=== PATIENT | male | born 1985 | race Caucasian/White ===

== ENCOUNTER 2020-09-03 15:01 | Outpatient (REF) | payer MEDICAID, SELFPAY | END 2020-09-03 15:02 | disposition home or self-care (01) | LOC: HO.LAB 15:01 | PROVIDERS: Visit Provider Internal Medicine | DX: Z20.822 Contact with and (suspected) exposure to COVID-19 (principal) | CPT/HCPCS: 36415; C9803; U0003; U0005 ==

== ENCOUNTER 2022-02-16 08:15 | Outpatient (REF) | payer MEDICAID, SELFPAY ==
--- NOTE | ~2022-02-16 | XR_ITS ---
EXAMINATION: XR HAND, RIGHT CLINICAL INFORMATION: Pain right fingers. COMPARISON: Radiographs right hand and index finger 01/30/2015. TECHNIQUE: PA, lateral, and oblique views of the right hand. FINDINGS: Bony mineralization normal. There is no acute or healing fracture, dislocation, or destructive process. There is borderline negative ulnar variance similar to prior radiographs 2014. The carpus and MCP joints show no narrowing or erosive change or chondrocalcinosis. The interphalangeal joints are unremarkable. No narrowing or erosive change. XR/XR hand RT min 3V IMPRESSION: No arthropathy.
== END 2022-02-16 08:16 | disposition home or self-care (01) ==
LOC: HO.XRAY 08:15
PROVIDERS: PCP Internal Medicine; Visit Provider Emergency Medicine
DX: M79.644 Pain in right finger(s) (principal)
CPT/HCPCS: 73130

== ENCOUNTER → 2023-01-22 12:08 | Outpatient (BNVA) | payer MEDICAID, SELFPAY | PROVIDERS: PCP Internal Medicine; Visit Provider Nurse Practitioner Family | DX: N20.0 Calculus of kidney (principal); R10.9 Unspecified abdominal pain; R31.29 Other microscopic hematuria | CPT/HCPCS: 99202 ==

== ENCOUNTER 2023-02-04 13:13 | Outpatient (AMB) | payer MEDICAID, SELFPAY ==
--- NOTE | 2023-02-04 13:14 | A.OFFVIS_ITS ---
Intake Vital Signs 02/04/23 13:22 Weight 233 lb BP 120/84 Blood Pressure Location Rt brachial Position Sitting Pulse 85 Intake Visit Reasons: hemorrhoids Intake Note: This patient presents for an assessment for hemorrhoids. Patient c/o; occasional pain, describes rectal bleeding every morning. 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 He describes this with bleeding from his hemorrhoids. He said he has had this for many years. However, for the past 1 year, he has noticed this bleeding to be worse. He says that he practically bleeds every day with bowel movements. He also often feels discomfort pain with this hemorrhoids. He he denies problems with constipation. [facility] Medical History (Updated 02/04/23 @ 13:29 by Prateek Blue MD) Bleeding hemorrhoids Calculus of kidney Review of Systems Const Denies chills and Denies fever(s) Card Denies chest pain, Denies dyspnea and Denies dyspnea on exertion Resp Denies cough, Denies dyspnea and Denies dyspnea on exertion GI Reports hematochezia and Denies change in bowel habits Denies hematuria and Denies difficulty urinating Musc Denies back pain and Denies limited range of motion Neuro Denies focal weakness and Denies convulsions Psych Denies depression and Denies mood swings Physical Exam Const General: comfortable and no acute distress Orientation/consciousness: patient oriented x3 Neck Neck: Yes no lymphadenopathy Resp Auscultation: clear to auscultation bilaterally Cardio Rhythm: regular rhythm GI Other: Rectal exam prominent external hemorrhoids, left and right side, multiple, no perianal lesions, no bleeding, no fissure Palpation (GI): Soft to palpation, nontender and no guarding Neuro General: patient oriented x3 Office Procedures Anoscopy He was in anatoliy-knife position. The anoscope was gently inserted. A full examination of the anal canal was done. He had large internal external hemorrhoidal columns, 1 on the left and 2 prominent columns on the right side. There were no other lesions. There was no fissure. There was no bleeding. T here was no induration or tenderness on digital exam [id number] Assessment & Plan Assessment & Plan (1) Bleeding hemorrhoids: Code(s): K64.9 - Unspecified hemorrhoids Plan: He has large hemorrhoidal columns, mix of internal and external as described above. He describes bleeding practically every day now and this has worsened the past year. I did explain to him the option of proceeding with hemorrhoidectomy. I discussed with the technique of this procedure. I reviewed the risks including but not limited to bleeding, infections, postop pain, as well as the benefits and alternatives. I explained to him what to expect postoperatively He says he will discuss this with his boss at work so I can take time off for the surgery. He will call the office once he is ready to schedule. Coding Level of Care Code New Pt Level 3 (88285) Diagnoses Bleeding hemorrhoids K64.9 CPT Codes Details - CPT: 14147-[id number] ([id number])
[2023-02-04 13:22] VITALS: BP 120/84; PULSE 85
== END 2023-02-04 13:35 | disposition home or self-care (01) ==
PROVIDERS: PCP Internal Medicine; Visit Provider Surgery
DX: K64.9 Unspecified hemorrhoids (principal)
CPT/HCPCS: 46600; 99203

== ENCOUNTER → 2023-02-04 13:13 | Outpatient (BNVA) | payer MEDICAID, SELFPAY | PROVIDERS: PCP Internal Medicine; Visit Provider Surgery | DX: K64.9 Unspecified hemorrhoids (principal) | CPT/HCPCS: 46600; 99202 ==

== ENCOUNTER 2023-02-26 06:46 | Day surgery (SDC) | payer MEDICAID, SELFPAY ==
[2023-02-26] VITALS (14 sets, daily range): BP systolic 107–134; BP diastolic 67–77; PULSE 59–73; RESP 16–18; TEMP 36.4–37.1; O2SAT 94–100; BMI 32.1
[2023-02-26] MEDS: Lactated Ringers 1,000 ML 100 ML IVCONT (07:20)
--- NOTE | 2023-02-26 07:51 | HO.ANESPROP2 ---
HPI - Anesthesia Eval Consult details Narrative: for hemorroidectomy PMFSH Active Problems Active Problems: All Active Problems (Updated 02/04/23 @ 13:29 by Prateek Blue MD) Bleeding hemorrhoids (Acute) Microscopic hematuria (Acute) Flank pain (Acute) Calculus of kidney (Acute) Past Medical History Medical History Bleeding hemorrhoids Calculus of kidney Family History Family history of problems with anesthesia: No Surgical History History of Problems with Anesthesia: No Social History Social History Patient Tobacco Use Status: Never used Tobacco Substance Use Frequency: Daily Are you DNR?: No Advance Directives: No Advance Directives Information Provided: Yes Nutrition Risks: No Nutritional Risk Meds Allergies Allergy/AdvReac Type Severity Reaction Status Date / Time SEAFOOD Allergy Severe ANAPHYLAXIS Uncoded 02/26/23 06:57 crustaceans Allergy Unknown swelling Uncoded 02/26/23 06:57 Active Medications: Current Medications Lactated Ringer's (Lr) 1,000 mls @ 100 mls/hr IVCONT .Q10H FLAQUITO Last Admin: 02/26/23 07:20 Dose: 100 mls/hr Home Medications Medication Instructions Recorded Confirmed Last Taken Type ergocalciferol (vitamin D2) 1,250 1,250 mcg PO QWEEK 01/21/23 02/26/23 02/25/23 History mcg (50,000 unit) capsule Exam Exam Date and Time: February 26, 2023 0751 Height,Weight and Vital Signs: Height 5 ft 11 in Weight 104.326 kg Last Vital Signs Temp 97.6 F 02/26/23 07:07 Pulse 73 02/26/23 07:07 Resp 18 02/26/23 07:07 BP 115/77 02/26/23 07:07 Pulse Ox 96 02/26/23 07:07 O2 Del Method Room Air 02/26/23 07:07 Airway Mallampati Class: II TM Dist: >3cm Neck ROM: Full Heart: rrr Lungs: cta Assessment and Plan Assessment Anesthesia Assessment: Anesthesia Plan Discussed and Chart Reviewed Final Anesthetic Review Family History of Problems with Anesthesia: No History of Problems with Anesthesia: No NPO: Yes ASA Class: II Final Preanesthetic Review: No Changes in Pt Med Stat, Meds/Allgs Chart Reviewed, Consent Obtained/Reviewed and Anes Risks/Benef Reviewed Patient Risk: Low Procedure Risk: Low Anesthetic Plan Anesthetic Plan: GA Disposition: Standard PACU
--- NOTE | 2023-02-26 08:19 | MHC.SHP ---
Pre-Procedural Eval Section A Date of Service: 02/26/23 The patient is an INPATIENT: No Changes since office visit: Yes Cold of Flu in the past 2 weeks, Yes New Medical Problems, Yes Changes in Medication and Yes Patient answered all questions The History & Physical has been completed within 30 days and I have reviewed it.: Yes Section B Chief Complaint: Unspecified hemorrhoids Allergies: Allergies Allergy/AdvReac Type Severity Reaction Status Date / Time SEAFOOD Allergy Severe ANAPHYLAXIS Uncoded 02/26/23 06:57 crustaceans Allergy Unknown swelling Uncoded 02/26/23 06:57 Plan I have reviewed the history and physical and performed a pertinent physical examination on my patient. No changes have occurred unless specified. Time Spent With Patient Time: Total time managing care of this patient today ____ minutes.
--- NOTE | 2023-02-26 09:36 | W.PM.OPN ---
Operative Note Operative Note Narrative: Preop diagnosis: Ble eding hemorrhoi d s , i n t e r n a l e x t e r n a l Po s t o p d i a g n o s i s : The same Augie frank ure:
--- NOTE | 2023-02-26 09:40 | P.OP_ITS ---
Operative Note Operative Note Date of Service: 02/26/23 Narrative: Preop diagnosis: Bleeding internal external hemorrhoids Postop diagnosis: The same Procedure: Exam under anesthesia hemorrhoidectomy x3 columns Surgeon: Prateek Blue MD The patient is a 37-year-old male with a long history of passage of blood per rectum with note of bulky hemorrhoids on examination. He wanted to proceed with hemorrhoidectomy. He understood the technique of the planned procedure as well as the risks, benefits, and alternatives Was brought to the operating room. He was placed in prone anatoliy-knife position under general anesthesia via endotracheal tube. The buttocks were retracted wi th wide tape laterally. The perianal area was prepped and draped in the usual sterile fashion. A surgical time-out was done. The patient received a 10 2 g IV preoperatively Examination of the anal orifice revealed bulky hemorrhoidal columns, 1 on the left lateral, 1 on the right lateral and a small external hemorrhoid on the anterior lateral. I inserted the Daylin Davis retractor. I examined the anal canal circumferentially. There were no other lesions seen. Again, the hemorrhoidal columns described above were noted and the lateral columns on both sides were seen to be a mix of internal external and were bulky I applied a Canales grasper on the hemorrhoidal column on the left to retract this out in the field. I made a figure of 8 stitch at the pedicle past the dentate line using a chromic 3-0. I made an incision around this hemorrhoidal column to the perianal skin using blade 15. I excised this hemorrhoidal column above the plane of sphincters along this incision using scissors. I then closed this incision with a running chromic 3-0 stitch. Multiple additional chromic 3-0 sutures were placed for hemostasis as the incision was very will see due to the large size. I also then applied a Canales grasper at the hemorrhoidal column on the right side. I made a giwhyb-or-kzupo stitch at the pedicle using chromic 3-0 and made an incision around this all the way to the perianal skin with a blade 15. I excised this hemorrhoidal column above the plane of the sphincters along this incision with scissors. I closed the incision with a running chromic 3-0 stitch with additional hemostatic sutures placed as well. This area was oozy as well in view of the large size. There was as smaller external hemorrhoid column on the right anterior which was excised as well and closed with a running chromic 3-0 stitch. I observed for hemostasis. I had to apply for additional hemostatic sutures for oozing areas. Once hemostasis appeared to be achieved, I proceeded to then position a rolled Gelfoam into the anal canal for additional hemostasis. The anal canal was patent I infiltrated the perianal area with Marcaine 0.5% for postop analgesia. The procedure was then completed The patient tolerated procedure well. There were no immediate complications. Initial and final counts of sponges and instruments were correct. Estimated blood loss about 150 cc. The patient was extubated without difficulty and transferred to the recovery room with stable vital signs.
[2023-02-26] MEDS: oxyCODONE HCl Immed Release 5 MG TABLET PO (10:20)
[2023-02-26] MEDS: fentaNYL citrate/PF 100 MCG/2 ML VIAL 25 MCG IVPUSH ×3 (10:21→11:06)
[2023-02-26] MEDS: Acetaminophen 1,000 MG/100 ML PIGGYBACK 400 MG IV (10:26)
== END 2023-02-26 12:00 | disposition home or self-care (01) ==
PROVIDERS: PCP Internal Medicine; Visit Provider Surgery
PROC: (CPT 46260; principal; 2023-02-26 08:40)
PROC: (CPT 46260; 2023-02-26 08:40)
DX: K64.8 Other hemorrhoids (principal); K64.4 Residual hemorrhoidal skin tags; K62.5 Hemorrhage of anus and rectum; Z79.899 Other long term (current) drug therapy; Z87.442 Personal history of urinary calculi
CPT/HCPCS: 46260; 88304; J0131; J1885; J2405; J3010

== ENCOUNTER → 2023-02-26 06:46 | Outpatient (BNV) | payer MEDICAID, SELFPAY | PROVIDERS: PCP Internal Medicine; Visit Provider Surgery | DX: K64.8 Other hemorrhoids (principal) | CPT/HCPCS: 46260 ==

== ENCOUNTER 2023-03-08 13:54 | Outpatient (REF) | payer MEDICAID, SELFPAY ==
--- NOTE | ~2023-03-08 | US_ITS ---
EXAMINATION: US RETROPERITONEAL LIMITED (RENAL ONLY) CLINICAL INFORMATION: Calculus of kidney. COMPARISON: CT abdomen and pelvis 03/07/2020. X-ray KUB 07/01/2016. Renal ultrasound 06/16/2016. TECHNIQUE: Real-time imaging of the kidneys. FINDINGS: RIGHT KIDNEY: 11.4 x 5.7 x 5.5 cm (SAG x AP x TRV). The kidney is normal in size, contour, and echogenicity. Renal cortical thickness is normal. No calculi or focal parenchymal lesions. No hydronephrosis. LEFT KIDNEY: 12.4 x 5.4 x 6.6 cm (SAG x AP x TRV). The kidney is normal in size, contour, and echogenicity. There is a hypertrophic column of Keshav. Renal cortical thickness is normal. No calculi or focal parenchymal lesions. No hydronephrosis. US/US renal BI IMPRESSION: Unremarkable examination.
== END 2023-03-08 13:55 | disposition home or self-care (01) ==
LOC: HO.US 13:54
PROVIDERS: PCP Internal Medicine; Visit Provider Nurse Practitioner Family
DX: N20.0 Calculus of kidney (principal)
CPT/HCPCS: 76775

== ENCOUNTER 2023-03-08 14:35 | Outpatient (AMB) | payer MEDICAID, SELFPAY ==
--- NOTE | 2023-03-08 15:02 | MHC.OFFVIS ---
Intake Vital Signs 03/08/23 15:11 Weight 223 lb BP 114/74 Blood Pressure Location Rt brachial Position Sitting Pulse 74 Intake Visit Reasons: s/p hemorrhoidectomy, pain and bleeding Intake Note: This patient presents for a post-op follow-up assessment for rectal pain and bleeding, Hx hemorrhoidectomy. Patient c/o; reports rectal pain and bleeding. 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 He says that he had noticed some periodic bleeding with bowel movements the past 3 days as well as some pains. He was having an ultrasound today in the hospital so she called to see if he can come by to have the area checked. He denies any fever or chills. He has good bowel movements. [facility] Medical History Bleeding hemorrhoids Calculus of kidney Surgical History History of hemorrhoidectomy Social History Patient Tobacco Use Status: Never used Tobacco Review of Systems Const Denies chills and Denies fever(s) Card Reports dyspnea on exertion Resp Reports dyspnea on exertion GI Reports hematochezia Physical Exam Vital Signs: Last Vital Signs Pulse 74 03/08/23 15:11 BP 114/74 03/08/23 15:11 Const General: comfortable and no acute distress Resp Effort & Inspection: normal respiratory effort GI Other: Hemorrhoidectomy sites healing well, no pus, no induration, no significant discharge, no redness Assessment & Plan Assessment & Plan (1) Bleeding hemorrhoids: Code(s): K64.9 - Unspecified hemorrhoids Plan: Status post hemorrhoidectomy. His hemorrhoidectomy sites are actually healing well. There is no evidence of any infection at this time. I told him that he may see bleeding periodically for several weeks until the sites are completely healed. He is to continue doing hot Sitz baths. I will send him a prescription for ibuprofen as he has ran out of this . I will see him in the office in about 2-3 weeks for another wound check. Coding Level of Care Code Global (25861) Diagnoses Bleeding hemorrhoids K64.9
[2023-03-08 15:11] VITALS: BP 114/74; PULSE 74
== END 2023-03-08 15:34 | disposition home or self-care (01) ==
PROVIDERS: PCP Internal Medicine; Visit Provider Surgery
DX: K64.9 Unspecified hemorrhoids (principal)
CPT/HCPCS: 99024

== ENCOUNTER 2023-03-24 15:06 | Outpatient (AMB) | payer MEDICAID, SELFPAY ==
--- NOTE | 2023-03-24 15:06 | MHC.OFFVIS ---
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 Blunt. He is being followed up on today via telehealth for his longstanding history of nephrolithiasis. Of note, patient was seen approximately 2 months ago at which time a renal ultrasound was ordered for further assessment evaluation. These results reviewed with the patient today. Bilateral kidneys with no calculi, lesions, and or hydronephrosis noted. In discussion with the patient today he reports he continues to feel right-sided lower abdominal fullness and discomfort around his umbilicus. When asked he denies any issues with his urinartion. He denies denies urinary urgency, urinary frequency, incontinence, nocturia, hematuria, dysuria, foul smelling urine, changes to urinary stream, flank pain, fever, and or chills. He is happy with his current voiding parameters. Discussed microscopic hematuria noted on previous urinalysis at last office visit. Discussed potential symptoms related to microscopic hematuria. Discussed further microscopic hematuria workup with CT urogram, cytology, and in office cystoscopy given patient with history of recreational marijuana use. He otherwise offers no issues or concerns at this time. [facility] Medical History Bleeding hemorrhoids Calculus of kidney Surgical History History of hemorrhoidectomy Social History Patient Tobacco Use Status: Never used Tobacco Review of Systems Const All systems reviewed & are unremarkable except as noted in HPI and below Reports no additional complaints Eyes Reports no additional complaints ENT Reports no additional complaints Card Reports no additional complaints Resp Reports no additional complaints GI Reports no additional complaints Reports as per HPI Musc Reports no additional complaints Neuro Reports no additional complaints Psych Reports as per HPI Endo Reports no additional complaints Brown/Lymph Reports no additional complaints Aller/Immun Reports no additional complaints Physical Exam Const General: cooperative Orientation/consciousness: patient oriented x3 Resp Effort & Inspection: able to speak in complete sentences Neuro General: patient oriented x3 Psych Mental Status: mental status grossly normal Speech and movement: Clear speech present Attitude: cooperative Thought process: Normal thought process present Thought content: Normal thought content present Insight: Fair insight present (Psych) Judgement: Fair judgement present (Psych) Results Reviewed Results Reviewed: Date of Service: 03/08/23 EXAMINATION: US RETROPERITONEAL LIMITED (RENAL ONLY) FINDINGS: RIGHT KIDNEY: 11.4 x 5.7 x 5.5 cm (SAG x AP x TRV). The kidney is normal in size, contour, and echogenicity. Renal cortical thickness is normal. No calculi or focal parenchymal lesions. No hydronephrosis. LEFT KIDNEY: 12.4 x 5.4 x 6.6 cm (SAG x AP x TRV). The kidney is normal in size, contour, and echogenicity. There is a hypertrophic column of Keshav. Renal cortical thickness is normal. No calculi or focal parenchymal lesions. No hydronephrosis. IMPRESSION: Unremarkable examination. Assessment & Plan Assessment & Plan (1) Calculus of kidney: Code(s): N20.0 - Calculus of kidney Plan Recent renal ultrasound results reviewed with the patient today; as noted above. Patient continues to report right-sided umbilical discomfort radiating to right lower abdomen area Discussed further microscopic hematuria workup; however patient declines at this time Discussed if symptoms persist and/or worsen to seek medical treatment Patient denies any urinary issues or concerns at this time. Discussed, educated, encouraged on the importance of drinking plenty of water daily. Renal ultrasound in 1 year Follow-up in 1 year with imaging to be completed prior; or sooner with any issues, concerns, and or questions Orders: Orders US renal BI 364 Days N20.0 - Calculus of kidney Patient Instructions: The patient had an opportunity to ask questions regarding the treatment plan. All questions were answered. Physical exam, labs, and imaging were discussed and reviewed in detail. As well as risks, benefits, and discussion of treatment choices. No major barriers to understanding were identified. The patient expressed understanding and agreement with the above treatment plan. The patient was made aware they should contact our office by phone for worsening of their current condition, the appearance of new symptoms, or with any questions or concerns. Compliance is encouraged with any medications and follow up testing that is ordered. It is a privilege to be allowed the opportunity to participate in? your urological care.? Again, if you have any questions or concerns If you have any questions or concerns please do not hesitate to contact me. The office is [phone]. This note is constructed using voice recognition software. While every effort has been made to ensure accuracy oil field roustabout errors may have been included. Yours sincerely, Audrey Mitchell [facility] Telehealth Telehealth Location of provider rendering services: practice address Location of patient: address on file Patient Identification confirmed using: Name, : Yes Telehealth method: voice only Patient verbally consented to treatment: Yes Patient verbally consented to billing insurance company: Yes Patient informed of any privacy concerns related to visit: Yes Minutes spent on Phone/Video with Pt.: 15 Coding Level of Care Code Tele Est Pt Level 3 (56283) Diagnoses Calculus of kidney N20.0
== END 2023-03-24 16:33 ==
LOC: HO.HUSH 15:06
PROVIDERS: PCP Internal Medicine; Visit Provider Nurse Practitioner Family
DX: N20.0 Calculus of kidney (principal)
CPT/HCPCS: 99213

== ENCOUNTER → 2023-03-24 15:06 | Outpatient (BNVA) | payer MEDICAID, SELFPAY | PROVIDERS: PCP Internal Medicine; Visit Provider Nurse Practitioner Family ==

== ENCOUNTER 2023-03-25 15:06 | Outpatient (AMB) | payer MEDICAID, SELFPAY ==
[2023-03-25 15:12] VITALS: BP 134/91; PULSE 78
--- NOTE | 2023-03-25 15:12 | A.OFFVIS_ITS ---
Intake Vital Signs 03/25/23 15:12 Weight 224 lb BP 134/91 H Blood Pressure Location Rt brachial Position Sitting Pulse 78 Intake Visit Reasons: 2 wk follow up hemorrhoidectomy Intake Note: Patient here to f/u hemorrhoidectomy. Reports doing well. Incision healing well. Denies constipation. No longer taking pain meds. 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 He says he now feels great. He denies any bleeding. He has good bowel movements. He feels well overall. [facility] Medical History Bleeding hemorrhoids Calculus of kidney Surgical History History of hemorrhoidectomy Social History Patient Tobacco Use Status: Never used Tobacco Review of Systems Const Denies chills and Denies fever(s) Physical Exam Vital Signs: Last Vital Signs Pulse 78 03/25/23 15:12 BP 134/91 H 03/25/23 15:12 Const General: comfortable and no acute distress Resp Effort & Inspection: normal respiratory effort GI Other: Rectal exam shows the hemorrhoidectomy sites to be well healing, no induration, no discharge Assessment & Plan Assessment & Plan (1) Bleeding hemorrhoids: Code(s): K64.9 - Unspecified hemorrhoids Plan: Status post hemorrhoidectomy. His surgical sites are now well healed. He has good bowel movements. He says he feels great and denies any significant pain or bleeding. He can therefore follow up on a p.r.n. basis. He was advised on avoiding straining and constipation. Coding Level of Care Code Global (14144) Diagnoses Bleeding hemorrhoids K64.9
== END 2023-03-25 15:19 | disposition home or self-care (01) ==
PROVIDERS: PCP Internal Medicine; Visit Provider Surgery
DX: K64.9 Unspecified hemorrhoids (principal)
CPT/HCPCS: 99024

== ENCOUNTER → 2023-03-25 15:06 | Outpatient (BNVA) | payer MEDICAID, SELFPAY | PROVIDERS: PCP Internal Medicine; Visit Provider Surgery ==

== ENCOUNTER 2023-06-03 16:45 | Outpatient (REF) | payer MEDICAID, SELFPAY ==
--- NOTE | ~2023-06-03 | XR_ITS ---
EXAMINATION: XR FOOT, RIGHT CLINICAL INFORMATION: Question stress fracture of the right heel. COMPARISON: None available. TECHNIQUE: AP, lateral, and oblique views of the right foot. FINDINGS: Bony alignment and mineralization are normal. No fracture, dislocation right ankle joint effusion is seen. Boehler's angle is normal. There is no abnormal periosteal thickening. 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 There is mild bunion formation of the first metacarpal head. No focal soft tissue swelling, gas or foreign body is seen. XR/XR foot RT min 3V IMPRESSION: 1. No fracture, dislocation or right ankle joint effusion is seen. 2. 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 3. There is mild bunion formation.
== END 2023-06-03 16:46 | disposition home or self-care (01) ==
LOC: HO.XRAY 16:45
PROVIDERS: PCP Internal Medicine; Visit Provider Podiatrist
DX: M21.611 Bunion of right foot (principal)
CPT/HCPCS: 73630

== ENCOUNTER 2023-12-29 11:52 | Outpatient (REF) | payer MEDICAID, SELFPAY ==
[2023-12-29 13:51] LABS: MANUAL DIFF FLAG NO
[2023-12-29 14:03] LABS: Basophils Percent Auto 0.3 % (0-2); Eosinophils Absolute Auto 0.2 X10*3/uL (0.0-0.4); Eosinophils Percent Auto 2.2 % (0-4); Hematocrit 47.4 % (42.0-52.0); Hemoglobin 15.9 g/dl (14.0-18.0); Imm Gran Abs Auto 0.03 X10*3/uL (0.00-0.03); Imm Gran Pct Auto 0.4 % (0.0-0.4); Lymphocytes Absolute Auto 2.6 X10*3/uL (1.2-4.9); Lymphocytes Percent Auto 33.3 % (20-40); Mean Corpuscular HGB Conc 33.5 g/dl (31.0-36.0); Mean Corpuscular Hemoglobin 30.2 pg (27.0-33.0); Mean Corpuscular Volume 89.9 fL (80.0-98.0); Mean Platelet Volume 11.5 fL (9.4-12.4); Monocytes Absolute Auto 0.5 X10*3/uL (0.1-1.2); Monocytes Percent Auto 6.3 % (2-11); Neutrophils Absolute Auto 4.5 x10*3/uL (2.0-8.3); Neutrophils Percent Auto 57.5 % (45-73); Platelet Count 262 X10*3/uL (160-400); Red Blood Count 5.27 X10*6/uL (4.60-5.80); Red Cell Distribution Width 13.2 % (11.0-16.0); White Blood Count 7.8 X10*3/uL (4.8-10.8)
[2023-12-29 14:09] LABS: Estimated Average Glucose 105 mg/dL; Hemoglobin A1c % 5.3 % (<6.0)
[2023-12-29 14:19] LABS: Alanine Aminotransferase 31 U/L (0-40); Albumin Level 4.5 g/dL (3.5-5.0); Alkaline Phosphatase 104 U/L (39-117); Anion Gap 14 (12-20); Aspartate Amino Transferase 23 U/L (5-37); Bilirubin Direct 0.3 mg/dL (0.0-0.5); Bilirubin Total 0.7 mg/dL (0.0-1.0); Blood Urea Nitrogen 15 mg/dL (9-16); Carbon Dioxide 25 mmol/L (22-29); Chloride 107 mmol/L (96-108); Cholesterol 154 mg/dL (<200); Estimated Glomerular Filt Rate > 60; Glucose Random 96 mg/dL (60-115); HDL Cholesterol 48 mg/dL (>40); LDL Cholesterol Calculated 99 mg/dL (<100); Potassium 4.1 mmol/L (3.3-5.1); Sodium 142 mmol/L (135-145); Total Protein 7.1 g/dL (6.5-8.0); Triglycerides 35 mg/dL (<150)
[2023-12-29 14:30] LABS: TSH reflex Free T4 0.34 uIU/mL (0.32-4.0)
[2023-12-29 14:32] LABS: ~HepC Num1 0.08 S/CO (0.00-0.79); ~Hepatitis C Antibody Nonreactive (Nonreactive)
[2023-12-29 15:17] LABS: CT PCR NOT DETECTED (Not Detect.); NG PCR NOT DETECTED (Not Detect.)
[2024-01-01 18:38] LABS: HIV RNA PCR Qn Copies Not Detected Copies/mL; HIV RNA PCR Qn Log Copies Not Detected Log cps/mL
[2024-01-03 10:34] LABS: RPR Rapid Plasma Reagin NON-REACTIVE (NON-REACTIVE)
== END 2023-12-29 11:53 | disposition home or self-care (01) ==
LOC: HO.HHCL 11:52
PROVIDERS: Visit Provider Internal Medicine
DX: Z00.00 Encounter for general adult medical examination without abnormal findings (principal)
CPT/HCPCS: 0353U; 36415; 80048; 80061; 80076; 83036; 84443; 85025; 86592; 86803; 87536; 87900

== ENCOUNTER 2024-02-20 21:50 | Emergency (ER) | payer OTHER, MEDICAID, SELFPAY ==
--- NOTE | ~2024-02-20 | XR_ITS ---
EXAMINATION: Lumbar spine and dorsal spine. CLINICAL INDICATION: Pain. COMPARISON: MRI lumbar spine 07/16/2009. TECHNIQUE: 3 views lumbar spine and 2 views dorsal spine. FINDINGS: Lumbar spine: There is normal lumbar lordosis. The vertebral heights, alignment and disc heights are normal. There is no visible acute fracture, dislocation or subluxation seen. Dorsal spine: There is normal thoracic kyphosis. The vertebral heights, alignment and disc heights are normal. No visible acute fracture, dislocation or subluxation seen. XR/XR lumbar spine 2-3V IMPRESSION: Unremarkable lumbar spine and dorsal spine exam.
--- NOTE | ~2024-02-20 | XR_ITS ---
EXAMINATION: Lumbar spine and dorsal spine. CLINICAL INDICATION: Pain. COMPARISON: MRI lumbar spine 07/16/2009. TECHNIQUE: 3 views lumbar spine and 2 views dorsal spine. FINDINGS: Lumbar spine: There is normal lumbar lordosis. The vertebral heights, alignment and disc heights are normal. There is no visible acute fracture, dislocation or subluxation seen. Dorsal spine: There is normal thoracic kyphosis. The vertebral heights, alignment and disc heights are normal. No visible acute fracture, dislocation or subluxation seen. XR/XR thoracic spine 2V IMPRESSION: Unremarkable lumbar spine and dorsal spine exam.
[2024-02-20 21:52] VITALS: BP 139/71; PULSE 79; RESP 18; TEMP 37.3; O2SAT 97; BMI 31.8
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
[2024-02-20 23:01] VITALS: BP 139/71; PULSE 79; RESP 18; TEMP 37.3; O2SAT 97
== END 2024-02-20 23:02 | disposition home or self-care (01) ==
PROVIDERS: Emergency Provider Emergency Medicine Emergency Medical Services; PCP Internal Medicine
DX: M54.50 Low back pain, unspecified (principal); M54.6 Pain in thoracic spine
CPT/HCPCS: 72070; 72100; 99282; 99283

== ENCOUNTER 2024-03-13 16:00 | Outpatient (REF) | payer MEDICAID, SELFPAY ==
--- NOTE | ~2024-03-13 | US_ITS ---
EXAMINATION: US RETROPERITONEAL COMPLETE (RENAL) CLINICAL INFORMATION: Renal calculus.. COMPARISON: Renal ultrasound dated 03/08/2023; CT abdomen and pelvis dated 03/07/2020. TECHNIQUE: Real-time imaging of the kidneys and bladder. FINDINGS: RIGHT KIDNEY: 10.9 x 4.8 x 4.9 cm (SAG x AP x TRV). The kidney is normal in size, contour, and echogenicity. Renal cortical thickness is normal. No calculi or focal parenchymal lesions. No hydronephrosis. LEFT KIDNEY: 11.7 x 5.8 x 4.7 cm (SAG x AP x TRV). The kidney is normal in size, contour, and echogenicity. Again, there is a hypertrophic column of Keshav. Renal cortical thickness is normal. No calculi or focal parenchymal lesions. No hydronephrosis. US/US renal BI IMPRESSION: Unremarkable examination. Electronically signed by: Jan Ruggiero MD 03/29/2024 08:19 PM EDT
== END 2024-03-13 16:01 | disposition home or self-care (01) ==
LOC: HO.US 16:00
PROVIDERS: PCP Internal Medicine; Visit Provider Nurse Practitioner Family
DX: N20.0 Calculus of kidney (principal)
CPT/HCPCS: 76775

== ENCOUNTER 2024-03-23 13:37 | Outpatient (AMB) | payer MEDICAID, SELFPAY ==
--- NOTE | 2024-03-23 13:38 | MHC.OFFVIS ---
Intake Visit Reasons: 1y/US(set) Intake Note: Patient is presents for follow up history of kidney stones and ultrasound results Imaging Completed:03/13/24 Urology Medications: none Blood Thinner: none Certified Pesticide Applicator Required: No Accompanied by: Self / Same As Patient Allergies crustaceans Allergy (Severe, Uncoded 03/23/24 19:26) Anaphylaxis SEAFOOD Allergy (Severe, Uncoded 03/23/24 19:26) Anaphylaxis Medication List - Last Reconciled 03/23/24 by EDGARDO Lowe cyclobenzaprine 10 mg PO TID PRN ibuprofen 600 mg PO TID PRN HPI Comments Details: Brandon is a very pleasant 38-year-old male patient of Dr. Blunt. He presents to the office today for follow-up of his nephrolithiasis. In discussion with the patient today reports since his last office visit here a year ago he has had no bothersome urinary issues or concerns. Recent renal imaging results reviewed with the patient today. Bilateral kidneys with no calculi, lesions, and or hydronephrosis. Unremarkable renal examination. In office urinalysis results reviewed with the patient today no microscopic hematuria noted today. He reports to be drinking plenty of water daily. When asked he denies urinary urgency, urinary frequency, incontinence, nocturia, hematuria, dysuria, foul smelling urine, changes to urinary stream, flank pain, fever, and or chills. He is happy with his current voiding parameters. He otherwise offers no issues or concerns at this time. [facility] Medical History Bleeding hemorrhoids Calculus of kidney Surgical History History of hemorrhoidectomy Social History Patient Tobacco Use Status: Never used Tobacco Review of Systems Const All systems reviewed & are unremarkable except as noted in HPI and below Reports no additional complaints Eyes Reports no additional complaints ENT Reports no additional complaints Card Reports no additional complaints Resp Reports no additional complaints GI Reports no additional complaints Reports as per HPI Musc Reports no additional complaints Neuro Reports no additional complaints Psych Reports as per HPI Endo Reports no additional complaints Brown/Lymph Reports no additional complaints Aller/Immun Reports no additional complaints Physical Exam Const General: cooperative, healthy appearing, comfortable, no acute distress, well developed, alert and awake Orientation/consciousness: patient oriented x3 Limitations: no limitations HEENT Head: Yes normal to inspection, Yes normocephalic and Yes atraumatic Ears: hearing grossly normal bilaterally Eyes General: appearance normal, both eyes and all related structures Neck Neck: Yes normal visual inspection and Yes trachea midline Chest Chest palpation & inspection: normal inspection of the chest Resp Effort & Inspection: normal respiratory effort and able to speak in complete sentences Cardio Rate: regular rate GI Inspection: Yes normal to inspection General: Yes no CVA tenderness Back/Spine/Pelvis Back: no CVA tenderness Skin General skin exam: no rashes or lesions noted Neuro General: patient oriented x3 Extrem General: Yes normal to inspection Psych Appearance: grossly normal and well kempt Mental Status: mental status grossly normal Speech and movement: Normal speech and movement present and Clear speech present Affect: normal affect Attitude: cooperative Thought process: Normal thought process present Thought content: Normal thought content present Insight: Fair insight present (Psych) Judgement: Fair judgement present (Psych) Results AMB Urinalysis, Automated UA Leukoctes 0 Bibi/uL Last Edit by [employer] on 03/23/24 13:53 UA Nitrite Last Edit by [employer] on 03/23/24 13:53 UA Urobilinogen 0.2 mg/dL Last Edit by [employer] on 03/23/24 13:53 UA Protein 15 mg/dL Last Edit by [employer] on 03/23/24 13:53 UA pH 6.5 Last Edit by [employer] on 03/23/24 13:53 UA Blood 0 Theo/uL Last Edit by [employer] on 03/23/24 13:53 UA Specific [place] 1.020 Last Edit by [employer] on 03/23/24 13:53 UA Ketone Negative Last Edit by [employer] on 03/23/24 13:53 UA Bilirubin 0 mg/dL Last Edit by [employer] on 03/23/24 13:53 UA Glucose 0 mg/dL Last Edit by [employer] on 03/23/24 13:53 Results Reviewed Results Reviewed: Laboratory Last Values Urine pH (Auto) 6.5 03/23/24 13:45 Specific [place] (Auto) 1.020 03/23/24 13:45 Urine Protein (Auto) 15 mg/dL 03/23/24 13:45 Glucose (UA)(Auto) 0 mg/dL 03/23/24 13:45 Urine Ketones (Auto) Negative 03/23/24 13:45 Urine Blood (Auto) 0 Theo/uL 03/23/24 13:45 Urine Bilirubin (Auto) 0 mg/dL 03/23/24 13:45 Urine Urobilinogen (Auto) 0.2 mg/dL 03/23/24 13:45 Leukocyte Esterase (Auto) 0 Bibi/uL 03/23/24 13:45 Date of Service: 03/13/24 EXAMINATION: US RETROPERITONEAL COMPLETE (RENAL) FINDINGS: RIGHT KIDNEY: 10.9 x 4.8 x 4.9 cm (SAG x AP x TRV). The kidney is normal in size, contour, and echogenicity. Renal cortical thickness is normal. No calculi or focal parenchymal lesions. No hydronephrosis. LEFT KIDNEY: 11.7 x 5.8 x 4.7 cm (SAG x AP x TRV). The kidney is normal in size, contour, and echogenicity. Again, there is a hypertrophic column of Keshav. Renal cortical thickness is normal. No calculi or focal parenchymal lesions. No hydronephrosis. IMPRESSION: Unremarkable examination. Assessment & Plan Assessment & Plan (1) Microscopic hematuria: Code(s): R31.29 - Other microscopic hematuria Category: Medical (2) Calculus of kidney: Code(s): N20.0 - Calculus of kidney Category: Medical Plan In office urinalysis results reviewed with the patient today; as noted above. Recent renal imaging results reviewed with the patient today; as noted above. Patient currently denies any bothersome urinary issues or concerns. He reports be happy with current voiding parameters. Discussed, educated, and stressed the importance of adequate hydration relation to nephrolithiasis as well as overall health and well-being. Will obtain renal ultrasound in 1 year. Follow-up in 1 year with imaging to be completed prior; or sooner with any issues, concerns, and or questions. Orders: Orders AMB Urinalysis Automated 03/23/24 Z13.9 - Encounter for screening, unspecified US renal BI 1 Year N20.0 - Calculus of kidney Patient Instructions: The patient had an opportunity to ask questions regarding the treatment plan. All questions were answered. Physical exam, labs, and imaging were discussed and reviewed in detail. As well as risks, benefits, and discussion of treatment choices. No major barriers to understanding were identified. The patient expressed understanding and agreement with the above treatment plan. The patient was made aware they should contact our office by phone for worsening of their current condition, the appearance of new symptoms, or with any questions or concerns. Compliance is encouraged with any medications and follow up testing that is ordered. It is a privilege to be allowed the opportunity to participate in? your urological care.? Again, if you have any questions or concerns If you have any questions or concerns please do not hesitate to contact me. The office is [phone]. This note is constructed using voice recognition software. While every effort has been made to ensure accuracy promotions team leader errors may have been included. Yours sincerely, EDGARDO Lowe Coding Level of Care Code Est Pt Level 3 (74526) Diagnoses Microscopic hematuria R31.29 Calculus of kidney N20.0
== END 2024-03-23 13:57 | disposition home or self-care (01) ==
PROVIDERS: PCP Internal Medicine; Visit Provider Nurse Practitioner Family
DX: R31.29 Other microscopic hematuria (principal); N20.0 Calculus of kidney
CPT/HCPCS: 99213

== ENCOUNTER → 2024-03-23 13:37 | Outpatient (BNVA) | payer MEDICAID, SELFPAY | PROVIDERS: PCP Internal Medicine; Visit Provider Nurse Practitioner Family | DX: N20.0 Calculus of kidney (principal); R31.29 Other microscopic hematuria | CPT/HCPCS: 81003; 99212 ==

== ENCOUNTER 2024-07-26 19:49 | Emergency (ER) | payer MEDICAID, SELFPAY ==
--- NOTE | ~2024-07-26 | XR_ITS ---
CLINICAL HISTORY: fall 4 view left knee Comparison: None Findings: No fractures or dislocations. No significant arthritic change or erosions. No joint effusion. No radiopaque foreign body. IMPRESSION: 1. No acute findings. This document has been electronically signed by: Jarek Cordoba MD on 07/26/2024 20:59:34
--- NOTE | ~2024-07-26 | US_ITS ---
CLINICAL HISTORY: pain Venous duplex ultrasound left lower extremity Comparison: None Findings: The visualized deep veins are fully compressible with normal Doppler color flow and spectral tracings. No popliteal cyst. Enlarged left groin lymph nodes are identified, measuring up to 2.6 x 0.8 x 1.7 cm in maximal dimension. IMPRESSION: 1. Negative for left lower extremity deep vein thrombosis. 2. Enlarged left groin lymph nodes incidentally noted. This document has been electronically signed by: Brandon Palacios MD on 07/26/2024 21:38:45
--- NOTE | ~2024-07-26 | XR_ITS ---
CLINICAL HISTORY: pain 2 view left tibia-fibula Comparison: None Findings No fractures or dislocations. No joint effusion. No significant arthritic change. No radiopaque foreign body. IMPRESSION: 1. Normal left tibia-fibula This document has been electronically signed by: Jarek Cordoba MD on 07/26/2024 21:01:20
[2024-07-26 19:52] VITALS: BP 136/87; PULSE 90; RESP 20; TEMP 36.5; O2SAT 96; BMI 32.9
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
[2024-07-27] MEDS: Doxycycline Monohydrate 100 MG CAPSULE PO (00:01)
[2024-07-27 00:20] VITALS: BP 136/87; PULSE 90; RESP 20; TEMP 36.5; O2SAT 96
== END 2024-07-27 00:21 | disposition home or self-care (01) ==
PROVIDERS: Emergency Provider Emergency Medicine; PCP Internal Medicine
DX: L03.116 Cellulitis of left lower limb (principal); M79.605 Pain in left leg
CPT/HCPCS: 73564; 73590; 93971; 99282; 99284

== ENCOUNTER → 2024-07-26 20:00 | Outpatient (BNV) | payer MEDICAID, SELFPAY | PROVIDERS: PCP Internal Medicine; Visit Provider Radiology Diagnostic Radiology | DX: M79.662 Pain in left lower leg (principal); M25.562 Pain in left knee; W19.XXXA Unspecified fall, initial encounter | CPT/HCPCS: 73564; 73590; 93971 ==

== ENCOUNTER 2025-02-12 12:19 | Outpatient (REF) | payer MEDICAID, SELFPAY ==
[2025-02-12 12:59] LABS: MANUAL DIFF FLAG NO
[2025-02-12 13:09] LABS: Hematocrit 43.4 % (42.0-52.0); Hemoglobin 14.8 g/dl (14.0-18.0); Imm Gran Abs Auto 0.03 X10*3/uL (0.00-0.03); Imm Gran Pct Auto 0.3 % (0.0-0.4); Lymphocytes Absolute Auto 2.4 X10*3/uL (1.2-4.9); Mean Corpuscular HGB Conc 34.1 g/dl (31.0-36.0); Mean Corpuscular Hemoglobin 30.3 pg (27.0-33.0); Mean Corpuscular Volume 88.9 fL (80.0-98.0); NRBC Abs Auto 0.000 X10*3/uL (0.0-0.012); NRBC Pct Auto 0.0 /100WBC (0.0-0.2); Platelet Count 220 X10*3/uL (160-400); Red Blood Count 4.88 X10*6/uL (4.60-5.80); White Blood Count 9.4 X10*3/uL (4.8-10.8)
[2025-02-12 13:22] LABS: Hemoglobin A1C 135.8524 umol/L; Total Hemoglobin (HGBA1C) 3911.7571 umol/L
[2025-02-12 13:43] LABS: Alanine Aminotransferase 22 U/L (0-40); Albumin Level 4.5 g/dL (3.5-5.0); Alkaline Phosphatase 104 U/L (39-117); Anion Gap 12 (12-20); Aspartate Amino Transferase 28 U/L (5-37); Blood Urea Nitrogen 13 mg/dL (9-16); Calcium 8.9 mg/dL (8.4-10.2); Carbon Dioxide 26 mmol/L (22-29); Chloride 108 mmol/L (96-108); Cholesterol 127 mg/dL (<200); Estimated Glomerular Filt Rate > 60; HDL Cholesterol 48 mg/dL (>40); Potassium 3.8 mmol/L (3.3-5.1); Sodium 142 mmol/L (135-145); Total Protein 6.7 g/dL (6.5-8.0); Triglycerides 48 mg/dL (<150)
[2025-02-13 08:44] LABS: HIV Num 1 0.05 S/CO (0.00-0.99); ~HepC Num1 0.08 S/CO (0.00-0.79); ~Hepatitis C Antibody Nonreactive (Nonreactive)
== END 2025-02-12 12:20 | disposition home or self-care (01) ==
LOC: HO.HHCL 12:19
PROVIDERS: PCP Internal Medicine; Visit Provider Internal Medicine
DX: Z00.00 Encounter for general adult medical examination without abnormal findings (principal)
CPT/HCPCS: 36415; 80053; 80061; 82306; 83036; 84443; 85025; 86803; 87389

== ENCOUNTER 2025-03-17 06:29 | Emergency (ER) | payer OTHER, SELFPAY ==
--- NOTE | ~2025-03-17 | XR_ITS ---
CLINICAL HISTORY: L thumb pain thenar region 3 view left hand Comparison: None provided Findings: Bones intact. No dislocations. No significant arthritic change. No erosions. No radiopaque foreign body. IMPRESSION: 1. No acute findings This document has been electronically signed by: Arlyn Villafana MD on 03/17/2025 13:19:18
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
--- NOTE | ~2025-03-17 | CT_ITS ---
CLINICAL HISTORY: abd pain CT abdomen and pelvis with contrast Comparison: None provided Findings: The lung bases are clear. A few scattered too small to characterize hepatic hypodensities. Spleen, pancreas, gallbladder, liver, and adrenals are unremarkable. A few too small to characterize bilateral renal hypodensities. No urinary tract stone or hydronephrosis. Afsm-[id number] colonic stool. No bowel obstruction. Thin submucosal fat layer in rectum may be incidental or sequela of remote proctitis. Normal appendix. Prominent prostate measuring 49 mm width. Distended urinary bladder. A few small sclerotic foci in the left proximal femur and left ischial tuberosity may be due to bone islands. IMPRESSION: Prominent prostate. Distended urinary bladder. This document has been electronically signed by: Arlyn Villafana MD on 03/17/2025 10:34:24
[2025-03-17 06:34] VITALS: BP 109/72; BP 144/68; PULSE 96; PULSE 98; RESP 18; TEMP 36.8; O2SAT 94; BMI 35.0
[2025-03-17 07:22] LABS: MANUAL DIFF FLAG NO
[2025-03-17 07:24] LABS: Hematocrit 39.8 % (42.0-52.0); Hemoglobin 14.1 g/dl (14.0-18.0); Imm Gran Abs Auto 0.03 X10*3/uL (0.00-0.03); Imm Gran Pct Auto 0.4 % (0.0-0.4); Lymphocytes Absolute Auto 1.2 X10*3/uL (1.2-4.9); Mean Corpuscular HGB Conc 35.4 g/dl (31.0-36.0); Mean Corpuscular Hemoglobin 31.0 pg (27.0-33.0); Mean Corpuscular Volume 87.5 fL (80.0-98.0); NRBC Abs Auto 0.000 X10*3/uL (0.0-0.012); NRBC Pct Auto 0.0 /100WBC (0.0-0.2); Platelet Count 214 X10*3/uL (160-400); Red Blood Count 4.55 X10*6/uL (4.60-5.80); White Blood Count 7.4 X10*3/uL (4.8-10.8)
[2025-03-17 07:50] LABS: Alanine Aminotransferase 29 U/L (0-40); Albumin Level 4.3 g/dL (3.5-5.0); Alkaline Phosphatase 99 U/L (39-117); Anion Gap 14 (12-20); Aspartate Amino Transferase 29 U/L (5-37); Blood Urea Nitrogen 10 mg/dL (9-16); Calcium 8.6 mg/dL (8.4-10.2); Carbon Dioxide 23 mmol/L (22-29); Chloride 108 mmol/L (96-108); Creatinine Clr Calc Pharmacy 169.2; Estimated Glomerular Filt Rate > 60; Potassium 3.9 mmol/L (3.3-5.1); Sodium 141 mmol/L (135-145); Total Protein 6.3 g/dL (6.5-8.0)
[2025-03-17 08:00] VITALS: BP 107/68; PULSE 75; RESP 16; O2SAT 97
--- NOTE | 2025-03-17 08:10 | PC.NURSE ---
Assumed care of pt approx 0700, alert/oriented and answering questions appropriately. C-Collar placed by EMS. CT scans pending...
--- OUTSIDE RECORDS SUMMARY | 2025-03-17 08:41 | XMS_ITS | Encounter Summary ---
Author Organization [employer] Address [address] [place] [address] Care Team Providers Care Toll Ticket Clerk Name Role Phone Kathleen Patel MD Primary Care Provide r Reason for Visit * Reason Onset Date Comments image order 03/14/2025 Encounter Details Date Type Department Care Team ([facility] Contact Info) Description 03/14/2025 Telephone [facility] [address] [place] [address] Kathleen Patel MD [address] [place] [address] image order Social History Tobacco Use Types Packs/Day Years Used Date Smoking Tobacco: Every Day Cigarettes Passive Smoke Exposure: Current Smokeless Tobacco: Never Alcohol Use Standard Drinks/Week Comments Never 0 (1 standard drink = 0.6 oz pur e alcohol) Depression Answer Date Recorded Patient Health Questionnaire-9 Score 0 01/17/2024 Patient Health Questionnaire-9 Score 0 01/17/2024 Last PHQ-9: Questionnaire Data Not on file 0 01/17/2024 Housing Stability Answer Date Recorded What is your housing situation today? I have romina newton 02/09/[address] you li ve. Do you have problems with any of the following? None of the above 02/09/2025 Food Insecurity Answer Date Recorded Within the past 12 months, y ou worried that your food would run out before you got money to buy more: Never True 02/09/2025 Within the past 12 months,th e food you bought just didn't last and you didn't have enough money to get more: Never True Transportation Answer Date Recorded In the past 12 months, has l ack of transportation kept you from medical appts, meetings, work or from getting things needed for daily living? No 02/09/2025 Utilities Answer Date Recorded In the past 12 months, has t he electric, gas, oil or water company threatened to shut off services in your home? No 02/09/2025 Depression Answer Date Recorded Patient Health Questionnaire-2 Score 0 01/17/2024 Internet Access Answer Date Recorded Internet Access Q1 No 02/09/2025 Internet Access Q2 I do not want or need it 01/23 Sex and Gender Information Value Date Recorded Sex Assigned at Male 05/25/2022 10:15 AM EDT Legal Sex Male 10:15 AM EDT Gender Identity Male 05/25/2022 10:15 AM EDT Sexual Orientation Straight 05/25/2022 10 :15 AM EDT documented as of this encounter Miscellaneous Notes * Telephone Encounter - Son Hunt - 03/14/2025 9:49 AM EDT TC from PT reports that he was seen by Dr. Montenegro in January for PE and was recommended to undergo an X-ray of the bladder area. Patient reports the imaging is to evaluate for kidney stones. Patient currently has an X-ray appointment scheduled today at [facility] and is requesting an order for the imaging. documented in this encounter Plan of Treatment Upcoming Encounters Date Type Department Care Team (Late st Contact Info) Description 04/16/2025 2:30 PM EDT Office Visit [facility] MED[facility]INE [address] [place] [address] Kathleen Patel MD [address] [place] [address] documented as of this encounter Visit Diagnoses Not on filedocumented in this encounter Additional Health Concerns Assessment Noted Time PHQ-9 Depression Total Score: 0 01/17/20 24 1:42 PM EDT documented as of this encounter Care Teams Toll Ticket Clerk Relationship Specialty Start Date End Date Kathleen Patel MD [address] [place] [address] PCP - General Family Medicine 08/09/20 documented as of this encounter
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
--- NOTE | 2025-03-17 09:34 | PC.NURSE ---
Pt planned for CT angio, changed over into hospital gown and #18 to LAC. C-Collar removed per PA.
[2025-03-17] MEDS: iohexoL 350 MG/ML 100 ML INFUS..BTL IV (09:37)
[2025-03-17 10:42] VITALS: BP 103/66; PULSE 61; RESP 18; O2SAT 99
[2025-03-17 12:51] VITALS: BP 115/73; PULSE 62; RESP 16; TEMP 36.6; O2SAT 97
[2025-03-17 13:23] LABS: Cannabinoid Screen Urine POSITIVE (Not Detect)
[2025-03-17 13:52] VITALS: BP 115/73; PULSE 62; RESP 16; TEMP 36.6; O2SAT 97
== END 2025-03-17 13:53 | disposition home or self-care (01) ==
PROVIDERS: Emergency Provider Emergency Medicine
DX: S01.01XA Laceration without foreign body of scalp, initial encounter (principal); S13.4XXA Sprain of ligaments of cervical spine, initial encounter; S06.0X0A Concussion without loss of consciousness, initial encounter; M79.645 Pain in left finger(s); V49.88XA Car occupant (driver) (passenger) injured in other specified transport accidents, initial encounter; Y92.488 Other paved roadways as the place of occurrence of the external cause; Y93.89 Activity, other specified; Y99.8 Other external cause status
CPT/HCPCS: 12002; 36415; 70450; 71260; 72125; 73130; 74177; 80053; 80307; 85025; 96374; 99284; 99285; J1885; Q9967

== ENCOUNTER → 2025-03-17 06:45 | Outpatient (BNV) | payer MEDICAID, SELFPAY | PROVIDERS: Emergency Provider Emergency Medicine; Visit Provider Specialist | DX: M54.59 Other low back pain (principal); R07.9 Chest pain, unspecified; M54.2 Cervicalgia; S09.90XA Unspecified injury of head, initial encounter; M79.645 Pain in left finger(s) | CPT/HCPCS: 70450; 71260; 72125; 73130; 74177 ==

== ENCOUNTER 2025-03-26 17:21 | Emergency (ER) | payer OTHER, SELFPAY ==
[2025-03-26 17:32] VITALS: BP 148/87; PULSE 67; RESP 20; TEMP 37; O2SAT 98; BMI 30.4
--- NOTE | 2025-03-26 17:54 | ED_ITS ---
HPI - General Adult General Chief complaint: Recheck/Abnormal Lab/Rx Stated complaint: removing glenn Time Seen by Provider: 03/26/25 17:54 Source: patient Mode of arrival: ambulatory Limitations: no limitations History of Present Illness ED Provider: Quinn Monae HPI narrative: 39 yold male presents to the ED for 5 glenn removal. patient states they were placed 9 days ago. patient states no complaints. Related Data Previous Rx's ?Medication ?Instructions ?Recorded ibuprofen 600 mg tablet 600 mg PO TID PRN pain #20 t abs 03/08/23 cyclobenzaprine 10 mg tablet 10 mg PO TID PRN muscle s pasm #20 02/20/24 tabs doxycycline monohydrate 100 mg 100 mg PO BID #14 caps 07/26/24 capsule Allergies Allergy/AdvReac Type Severity Reaction Status Date / Time crustaceans Allergy Severe Anaphylaxis Uncoded 03/26/25 17:35 SEAFOOD Allergy Severe Anaphylaxis Uncoded 03/26/25 17:35 Review of Systems 2 Review of Systems: glenn removal Yes all other systems are reviewed and are negative [facility] Past Medical History Medical History Bleeding hemorrhoids Calculus of kidney Surgical History History of hemorrhoidectomy Social History Social History Alcohol intake: current Alcohol type: beer Patient Tobacco Use Status: Never used Tobacco Substance Use Type: Marijuana Advance Directives: No Advance Directives Information Provided: Yes Physical Exam ED Vital Signs: Vital Signs - 24 hr 03/26/25 17:32 Temperature 98.6 F Pulse Rate 67 Respiratory Rate 20 Blood Pressure 148/87 H Pulse Oximetry 98 Oxygen Delivery Method Room Air BMI result Body Mass Index 30.4 Const General: cooperative, healthy appearing, comfortable, no acute distress and well developed Orientation/consciousness: patient oriented x3 HENMT Head: Yes normal to inspection, Yes No palpable skull fracture present, Yes normocephalic and Yes atraumatic Head images: 2 1. 5 glenn present. no signs of infection. Eyes General: appearance normal, both eyes and all related structures Neck Neck: Yes normal visual inspection, Yes full ROM, Yes no lymphadenopathy, Yes no meningeal signs, Yes trachea midline, Yes supple, No anterior neck swelling and No tender Chest Chest palpation & inspection: normal inspection of the chest and normal palpation of entire chest wall Resp Effort & Inspection: normal respiratory effort and able to speak in complete sentences Auscultation: clear to auscultation bilaterally Cardio Jugular venous distension: no JVD Heart sounds: S1 normal heart sound present and S2 normal heart sound present GI Inspection: Yes normal to inspection Palpation (GI): Soft to palpation, not firm, nontender, no guarding and not rigid General: Yes no CVA tenderness Back/Spine/Pelvis Back: no CVA tenderness and No back tenderness Skin General skin exam: no rashes or lesions noted, elasticity normal and turgor normal Neuro General: patient oriented x3, gait normal, tone normal, moves all extremities, Normal light touch and pain sensation, no meningeal signs, no focal motor deficits and CN's II-XI intact bilaterally Extrem General: Yes normal to inspection, Yes full ROM and Yes capillary refill normal Psych Appearance: grossly normal, well kempt and not disheveled Medical Decision Making Medical Decision Making MDM Narrative: RME: 39 year male presents to ED for removal of glenn. Patient has glenn placed 9 days ago. Patient states no complaints. Patient has had 5 glenn on right frontal. Five frontal staple removed area cleaned with normal saline Betadine iodine. Patient explained worrisome signs informed return to the ED immediately Differential Diagnosis Differential Diagnoses: The differential diagnosis associated with the presentation includes (States Mccray removal wound infection) Admission/Observation Consideration of admission/observation: Escalation of care including admission/observation considered Independent Historian Clinical information obtained from an independent historian. History obtained from or confirmed by: Other (Patient) Prescription Management I considered prescription management with: Pain Medication Discharge Plan Discharge Clinical Impression: Encounter for removal of glenn Patient Disposition: Home, Self-Care Instructions: Staple Care (ED), Stitches Removal (ED) Additional Instructions: Recommend follow up with primary care provider. Return to the ED immediately for any headache, dizziness, nausea, vomiting, foul discharge, foul odor, redness, any other concerning symptoms. Prescriptions: No Action cyclobenzaprine 10 mg tablet 10 mg PO TID PRN (Reason: muscle spasm) Qty: 20 0RF doxycycline monohydrate 100 mg capsule 100 mg PO BID Qty: 14 0RF ibuprofen 600 mg tablet 600 mg PO TID PRN (Reason: pain) Qty: 20 0RF Stand Alone Forms: Work/School Release Interventions: ED Discharge Assessment Last Done: 03/26/25 18:11 Discharge Date/Time: 03/26/25 18:11 Print Language: Occitan
[2025-03-26 18:11] VITALS: BP 148/87; PULSE 67; RESP 20; TEMP 37; O2SAT 98
== END 2025-03-26 18:11 | disposition home or self-care (01) ==
PROVIDERS: Emergency Provider Emergency Medicine
DX: Z48.02 Encounter for removal of sutures (principal)
CPT/HCPCS: 99282